=== PATIENT | female | born 1945 | race Caucasian/White ===

== ENCOUNTER → 2018-11-29 15:38 | Outpatient (CLI) | payer OTHER, SELFPAY ==
--- NOTE | 2018-11-29 | DI.ECHO.S_ITS ---
[facility] +---------+ : : [address] : : : : [id number] : : : : Phone: [phone]+ Echocardiogram Report + + :Name: JUANA KHAN Study Date: 11/29/2018 Height: 62 in : :[facility] Exam Location: [facility] Weight: 174 lb : : Gender: Female BSA: 1.8 m2 : :: 1945 Age: 73 yrs BP: 134/70 mmHg: :Reason For Study: PALPITATIONS : : Performed By: Bryan Shelton : :Referring: COSTA ESCOBEDO : + + Interpretation Summary 1) Normal left ventricular thickness, size, wall motion, and systolic function (EF 65-70%). 2) Normal right ventricular size and function. 3) No significant valvular abnormalities. 4) No prior Echo available for comparison. Procedure: A two-dimensional transthoracic echocardiogram with color flow and Doppler was performed. The study quality was technically good. There is no prior echocardiogram noted for this patient. The suprasternal notch views were difficult to obtain and are suboptimal in quality. The patient was in normal sinus rhythm during the exam. Left Ventricle: The left ventricle is normal in size. There is normal left ventricular wall thickness. The ejection fraction is estimated to be 65-70%. There are no focal wall motion abnormalities. Right Ventricle: The right ventricle is normal in size and function. Atria: Both atria are normal in size. The interatrial septum is intact with no evidence for an atrial septal defect. Mitral Valve: The mitral valve is normal in structure and function. There is trace mitral regurgitation. Aortic Valve: The aortic valve is trileaflet. The aortic valve opens well. No aortic regurgitation is present. Tricuspid Valve: The tricuspid valve is normal in structure and function. There is trace tricuspid regurgitation. The right ventricular systolic pressure is estimated to be at least 25 mmHg based on an estimated right atrial pressure of 3 mm Hg. Pulmonic Valve: The pulmonic valve is normal in structure and function. There is trace pulmonic regurgitation. Great Vessels: The aortic root is normal size. The dimensions of the ascending aorta are normal. The pulmonary artery is normal size. The IVC is of normal diameter and collapses greater than 50% with a sniff. This suggests a low right atrial pressure of 3 mm Hg. Pericardium/ Pleura There is no pericardial effusion. There is no pleural effusion. MMode/2D Measurements & Calculations LVIDd: 4.1 cm LVOT diam: 2.2 cm LVIDs: 2.3 cm Ao root diam: 2.8 cm FS: 43.6 % asc Aorta Diam: 2.8 cm EPSS: 0.25 cm IVSd: 1.0 cm LVPWd: 0.82 cm LV jacob. diameter/BSA (cm/m^2): 2.3 LV sys. diameter/BSA (cm/m^2): 1.3 LA dimension: 3.5 cm RA long axis: 5.0 cm LA A2 area: 18.9 cm2 RA area: 14.4 cm2 LA A4 area: 16.1 cm2 RA vol: 35.8 ml LA length (vol): 5.1 cm RA : 19.9 ml/m2 LA vol: 50.2 ml IVC diam: 1.2 cm LA vol index: 27.9 ml/m2 Doppler Measurements & Calculations Ao V2 max: 147.0 cm/sec LVOT Max Alex: 127.8 cm/sec Ao V2 mean: 99.3 cm/sec LV V1 max P.5 mmHg Ao max P.6 mmHg LV V1 VTI: 27.7 cm Ao mean P.4 mmHg HIREN(I,D): 3.6 cm2 Ao V2 VTI: 28.6 cm HIREN(V,D): 3.2 cm2 sev ratio: 0.97 HIREN indexed to BSA (cm^2/m^2): 2.0 MV E max alex: 78.4 cm/sec TR max alex: 233.0 cm/sec MV A max alex: 90.8 cm/sec TR max P.7 mmHg MV E/A: 0.86 PA V2 max: 112.1 cm/sec Med Peak E' Alex: 6.0 cm/sec PA V2 mean: 81.3 cm/sec E/E' med: 13.1 PA mean P.9 mmHg Lat Peak E' Alex: 7.8 cm/sec PA pr(Accel): 24.1 mmHg E/E' lat: 10.0 E/e' average: 11.6 MV dec time: 0.20 sec SV(LVOT): 103.3 ml Reading Physician:05:00 PM
== END ==
PROVIDERS: Visit Provider Internal Medicine Cardiovascular Disease
DX: R00.2 Palpitations (principal); R42 Dizziness and giddiness; I44.4 Left anterior fascicular block
CPT/HCPCS: 93306

== ENCOUNTER 2023-03-22 08:45 | Outpatient (RCR) | payer MEDICARE, SELFPAY ==
--- NOTE | 2022-12-02 11:22 | PT.OIE ---
Current Diagnoses Mixed incontinence (12/02/22) Past Medical History (Last Updated 09/02/22 @ 20:25 by Patricia Williamson) Abnormal Pap smear of cervix Anemia (~1961) Cataracts, bilateral (~2009) Cervical polyp Chicken pox Encephalitis Hearing loss (~09/2020) Mumps Ocular migraine (~1991) Osteoarthritis Osteopenia (~2013) Vertigo Wears glasses Past Surgical History (Last Updated 09/02/22 @ 20:25 by Patricia Williamson) Anesthesia History of dilatation and curettage (~08/2019) Visit Care Team Role Provider Type ANGEL Mazariegos Attending Provider Non-Staff Family Provider Primary Care Provider Referring Provider Specialty: Nursing Address: [facility] [address], [address], [place], [address] Email: Physical Therapy Initial Evaluation PT-OP-A Visit Information Start: 12/01/22 11:38 Freq: Status: Active Protocol: Document 12/02/22 09:05 AMB (Rec: 12/02/22 10:06 AMB [id number]) Out-Patient Physical Therapy Visit Information Visit Information Visit Type Initial Evaluation Visit Start Time 09:00 Visit Stop Time 09:45 Total Visit Minutes 45 Visit Number 1 PT-OP-B Current Condition Start: 12/01/22 11:38 Freq: Status: Active Protocol: Document 12/02/22 09:05 AMB (Rec: 12/02/22 10:06 AMB [id number]) Current Condition History of Current Condition Onset Date 3-4 weeks ago Current Complaints Urge incontinence History of Current Condition 3-4 weeks ago starting having larger leaks. Has been leaking on and off for years. Walking from bed to toilet in the morning causes a large leak. Can also happen during the day now, walking to the bathroom. Going to the bathroom every half hour in the morning but then in the afternoon could be every 2 hours. 2 vaginal deliveries no leaking until about age 61. Personal Factors Other Personal Factors That May Effect osteopenia, hypertension Therapy/Recovery PT-OP-C Subjective Start: 12/01/22 11:38 Freq: Status: Active Protocol: Document 12/02/22 15:56 AMB (Rec: 12/02/22 15:56 AMB [id number]) Patient Questionnaires Pelvic Pain and Urgency/Frequency Patient Symptom Scale Pelvic Pain Score 11 PT-OP-I Pelvic Floor Start: 12/01/22 11:38 Freq: Status: Active Protocol: Document 12/02/22 10:49 AMB (Rec: 12/08/22 10:55 AMB [id number]) Pelvic Floor Assessment Urine Pelvic Floor Surgery No Leakage Size Large Leakage Cause Urge Nocturia 2 Contraction Ability Voluntary Contraction Weak Manual Muscle Testing Left 1 Manual Muscle Testing Right 1 Manual Muscle Testing Anterior 1 Manual Muscle Testing Posterior 1 Muscle Endurance (Seconds) 1 Comments Pelvic Floor Comments flicker of a pelvic floor contraction, very hard to palpate with verbal and physical cues PT-OP-T Assessment and Plan Start: 12/01/22 11:38 Freq: Status: Active Protocol: Document 12/02/22 16:01 AMB (Rec: 12/07/22 16:02 AMB [id number]) Physical Therapy Assessment Rehab Potential Rehabilitation Potential Good Evaluation Complexity Number of Personal Factors/Comorbidities 1-2 Number of Body Systems Impaired 1-2 Clinical Presentation at Evaluation Stable Impairments Impairments Functional Activities,Strength Goals Two Impairment Incontinence Short Term Goal (STG) Marti will calmly walk to the bathroom without leaking. STG Duration 4 weeks One Impairment Pelvic floor strength Short Term Goal (STG) Marti will be independent with and pelvic floor strengthening HEP. STG Duration 4 weeks Senior Living Goal (LTG) Marti will be able to contract her pelvic floor while moving from sit to stand . LTG Duration 8 weeks Assessment Summary Assessment Marti attends physical therapy with new onset urge incontinence. It sounds that she has had some level of incontinence for the past 16 or so years, but has progressively worsened. Did improve about a decade ago with pelvic floor physical therapy. She has urgency when getting up to use the bathroom. She has urinary frequency. Her pelvic floor strength was very poor, with difficulty palpating even a flicker of strength. Marti will benefit from physical therapy for both instruction in urgency reduction and for strengthening her pelvic floor . Physical Therapy Plan Frequency and Duration Frequency of Treatment 1x/Week Duration of treatment (weeks) 10 Plan of Care Start Date 12/02/22 Plan of Care End Date 02/10/23 Therapeutic Interventions Therapeutic Interventions Home Exercise Program,Manual Therapy,Neuromuscular Re- education,Self-Care/Home Management,Therapeutic Activities,Therapeutic Exercises Modalities Biofeedback,Electric Stimulation Next Visit Focus/Plan Next Note Type Treatment Note
--- NOTE | 2022-12-02 11:24 | PT.OPPOC ---
Physical, Occupational & Speech Therapy At [facility] Current Diagnoses Mixed incontinence (12/02/22) Visit Care Team Role Provider Type ANGEL Mazariegos Attending Provider Non-Staff Family Provider Primary Care Provider Referring Provider Specialty: Nursing Address: [facility] [address], [address], [place], [address] Email: Plan Of Care PT-OP-T Assessment and Plan Start: 12/01/22 11:38 Freq: Status: Active Protocol: Document 12/02/22 16:01 AMB (Rec: 12/07/22 16:02 AMB [id number]) Physical Therapy Assessment Rehab Potential Rehabilitation Potential Good Evaluation Complexity Number of Personal Factors/Comorbidities 1-2 Number of Body Systems Impaired 1-2 Clinical Presentation at Evaluation Stable Impairments Impairments Functional Activities,Strength Goals Two Impairment Incontinence Short Term Goal (STG) Marti will calmly walk to the bathroom without leaking. STG Duration 4 weeks One Impairment Pelvic floor strength Short Term Goal (STG) Marti will be independent with and pelvic floor strengthening HEP. STG Duration 4 weeks Mcfp Goal (LTG) Marti will be able to contract her pelvic floor while moving from sit to stand . LTG Duration 8 weeks Assessment Summary Assessment Marti attends physical therapy with new onset urge incontinence. It sounds that she has had some level of incontinence for the past 16 or so years, but has progressively worsened. Did improve about a decade ago with pelvic floor physical therapy. She has urgency when getting up to use the bathroom. She has urinary frequency. Her pelvic floor strength was very poor, with difficulty palpating even a flicker of strength. Marti will benefit from physical therapy for both instruction in urgency reduction and for strengthening her pelvic floor . Physical Therapy Plan Frequency and Duration Frequency of Treatment 1x/Week Duration of treatment (weeks) 10 Plan of Care Start Date 12/02/22 Plan of Care End Date 02/10/23 Therapeutic Interventions Therapeutic Interventions Home Exercise Program,Manual Therapy,Neuromuscular Re- education,Self-Care/Home Management,Therapeutic Activities,Therapeutic Exercises Modalities Biofeedback,Electric Stimulation Next Visit Focus/Plan Next Note Type Treatment Note Plan of Care Dates Plan of Care Start Date 12/02/22 Plan of Care End Date 02/10/23 Electronically Signed by: Alka Piedra, PT 12/08/22 1124 If you are in agreement with this Plan of Care, please return a signed and dated copy. I have reviewed this Plan of Care and certify that the skilled therapy services above are required to meet the patient?s needs. Physician Signature Date Printed Name and Credentials Clinical Instructor Signature Printed Name and Credentials
--- NOTE | 2022-12-08 14:50 | PT.OTN ---
Current Diagnoses Mixed incontinence (12/08/22) Physical Therapy Treatment Note PT-OP-A Visit Information Start: 12/01/22 11:38 Freq: Status: Active Protocol: Document 12/08/22 12:47 AMB (Rec: 12/08/22 13:33 AMB [id number]) Out-Patient Physical Therapy Visit Information Visit Information Visit Type Treatment Note Visit Start Time 12:45 Visit Stop Time 13:30 Total Visit Minutes 45 Visit Number 2 PT-OP-B Current Condition Start: 12/01/22 11:38 Freq: Status: Active Protocol: Document 12/02/22 09:05 AMB (Rec: 12/02/22 10:06 AMB [id number]) Current Condition History of Current Condition Onset Date 3-4 weeks ago Current Complaints Urge incontinence History of Current Condition 3-4 weeks ago starting having larger leaks. Has been leaking on and off for years. Walking from bed to toilet in the morning causes a large leak. Can also happen during the day now, walking to the bathroom. Going to the bathroom every half hour in the morning but then in the afternoon could be every 2 hours. 2 vaginal deliveries no leaking until about age 61. Personal Factors Other Personal Factors That May Effect osteopenia, hypertension Therapy/Recovery PT-OP-C Subjective Start: 12/01/22 11:38 Freq: Status: Active Protocol: Document 12/08/22 12:47 AMB (Rec: 12/08/22 13:33 AMB [id number]) OP-PT Subjective Patient Comments Patient Comments Marti had one leak in the last weak. PT-OP-I Pelvic Floor Start: 12/01/22 11:38 Freq: Status: Active Protocol: Document 12/02/22 10:49 AMB (Rec: 12/08/22 10:55 AMB [id number]) Pelvic Floor Assessment Urine Pelvic Floor Surgery No Leakage Size Large Leakage Cause Urge Nocturia 2 Contraction Ability Voluntary Contraction Weak Manual Muscle Testing Left 1 Manual Muscle Testing Right 1 Manual Muscle Testing Anterior 1 Manual Muscle Testing Posterior 1 Muscle Endurance (Seconds) 1 Comments Pelvic Floor Comments flicker of a pelvic floor contraction, very hard to palpate with verbal and physical cues PT-OP-Q Treatments Start: 12/01/22 11:38 Freq: Status: Active Protocol: Document 12/08/22 12:47 AMB (Rec: 12/08/22 13:33 AMB [id number]) Neuro Re-Education Treatment Other Activities sEMG Reps/Duration 38. Comments Cued to breathe. Discussed what muscles to use, ok urethral and vaginal and rectal muscles, avoiding glutes. Dont' let pelvic floor drop, control the descent. Got up to 3uv with cues ok to use rectal muscles too PT-OP-T Assessment and Plan Start: 12/01/22 11:38 Freq: Status: Active Protocol: Document 12/08/22 12:47 AMB (Rec: 12/08/22 13:33 AMB [id number]) Physical Therapy Assessment Goals Two Impairment Incontinence Short Term Goal (STG) Marti will calmly walk to the bathroom without leaking. STG Duration 4 weeks One Impairment Pelvic floor strength Short Term Goal (STG) Marti will be independent with and pelvic floor strengthening HEP. STG Duration 4 weeks [employer] Goal (LTG) Marti will be able to contract her pelvic floor while moving from sit to stand . LTG Duration 8 weeks Assessment Summary Assessment Baseline .1 and Max 3.8 for quick flicks. For long holds able to maintain contraction average was 1.5 with maximum of 2.8 uV. Fatigued very quickly, so that by the end pt was averaging 1uv for long holds. Physical Therapy Plan Frequency and Duration Frequency of Treatment 1x/Week Duration of treatment (weeks) 10 Plan of Care Start Date 12/02/22 Plan of Care End Date 02/10/23 Therapeutic Interventions Therapeutic Interventions Home Exercise Program,Manual Therapy,Neuromuscular Re- education,Self-Care/Home Management,Therapeutic Activities,Therapeutic Exercises Modalities Biofeedback,Electric Stimulation Next Visit Focus/Plan Next Note Type Treatment Note Next Visit Plan sEMG, supine progression of exercises.
--- NOTE | 2022-12-14 22:30 | PT.OTN ---
Current Diagnoses Mixed incontinence (12/14/22) Physical Therapy Treatment Note PT-OP-A Visit Information Start: 12/01/22 11:38 Freq: Status: Active Protocol: Document 12/14/22 10:59 AMB (Rec: 12/14/22 11:23 AMB [id number]) Out-Patient Physical Therapy Visit Information Visit Information Visit Type Treatment Note Visit Note Pt prefers therapist to mask, prefers to visual therapist washing hands Visit Start Time 10:45 Visit Stop Time 11:30 Total Visit Minutes 45 Visit Number 3 PT-OP-B Current Condition Start: 12/01/22 11:38 Freq: Status: Active Protocol: Document 12/02/22 09:05 AMB (Rec: 12/02/22 10:06 AMB [id number]) Current Condition History of Current Condition Onset Date 3-4 weeks ago Current Complaints Urge incontinence History of Current Condition 3-4 weeks ago starting having larger leaks. Has been leaking on and off for years. Walking from bed to toilet in the morning causes a large leak. Can also happen during the day now, walking to the bathroom. Going to the bathroom every half hour in the morning but then in the afternoon could be every 2 hours. 2 vaginal deliveries no leaking until about age 61. Personal Factors Other Personal Factors That May Effect osteopenia, hypertension Therapy/Recovery PT-OP-C Subjective Start: 12/01/22 11:38 Freq: Status: Active Protocol: Document 12/14/22 10:59 AMB (Rec: 12/14/22 11:23 AMB [id number]) OP-PT Subjective Patient Comments Patient Comments Marti had two leaks in the last week. PT-OP-I Pelvic Floor Start: 12/01/22 11:38 Freq: Status: Active Protocol: Document 12/02/22 10:49 AMB (Rec: 12/08/22 10:55 AMB [id number]) Pelvic Floor Assessment Urine Pelvic Floor Surgery No Leakage Size Large Leakage Cause Urge Nocturia 2 Contraction Ability Voluntary Contraction Weak Manual Muscle Testing Left 1 Manual Muscle Testing Right 1 Manual Muscle Testing Anterior 1 Manual Muscle Testing Posterior 1 Muscle Endurance (Seconds) 1 Comments Pelvic Floor Comments flicker of a pelvic floor contraction, very hard to palpate with verbal and physical cues PT-OP-Q Treatments Start: 12/01/22 11:38 Freq: Status: Active Protocol: Document 12/14/22 22:18 AMB (Rec: 12/16/22 22:21 AMB [id number]) Therapeutic Exercises Supine Exercises pelvic floor contract Supine Exercise Name 3 second on 10 second relax Reps/Minutes 5 min Comments heavy cues for breath hamstring stretch Side bilateral Reps/Minutes 30x2 hip flexor stretch Side bilateral Reps/Minutes 30x2 Comments leg off table adductor stretch Side bilateral Reps/Minutes 30x2 Comments butterfly piriformis stretch Side bilateral Reps/Minutes 30x2 PT-OP-T Assessment and Plan Start: 12/01/22 11:38 Freq: Status: Active Protocol: Document 12/14/22 10:59 AMB (Rec: 12/14/22 11:23 AMB [id number]) Physical Therapy Assessment Goals Two Impairment Incontinence Short Term Goal (STG) Marti will calmly walk to the bathroom without leaking. STG Duration 4 weeks One Impairment Pelvic floor strength Short Term Goal (STG) Marti will be independent with and pelvic floor strengthening HEP. STG Duration 4 weeks Jail Goal (LTG) Marti will be able to contract her pelvic floor while moving from sit to stand . LTG Duration 8 weeks Assessment Summary Assessment Pt quite tight throughout hip and back and this limits her ability to tolerate pelvic floor exercises. She is getting fatigue and soreness with her exercises, so worked on stretches today and encouraged longer rest breaks between strengthening exercises. Physical Therapy Plan Frequency and Duration Frequency of Treatment 1x/Week Duration of treatment (weeks) 10 Plan of Care Start Date 12/02/22 Plan of Care End Date 02/10/23 Therapeutic Interventions Therapeutic Interventions Home Exercise Program,Manual Therapy,Neuromuscular Re- education,Self-Care/Home Management,Therapeutic Activities,Therapeutic Exercises Modalities Biofeedback,Electric Stimulation Next Visit Focus/Plan Next Note Type Treatment Note Next Visit Plan sEMG, supine progression of exercises.
--- NOTE | 2022-12-22 10:06 | PT.OTN ---
Current Diagnoses Mixed incontinence (12/22/22) Physical Therapy Treatment Note PT-OP-A Visit Information Start: 12/01/22 11:38 Freq: Status: Active Protocol: Document 12/22/22 08:53 AMB (Rec: 12/22/22 09:55 AMB [id number]) Out-Patient Physical Therapy Visit Information Visit Information Visit Type Treatment Note Visit Note Pt prefers therapist to mask, prefers to visual therapist washing hands Visit Start Time 09:00 Visit Stop Time 09:45 Total Visit Minutes 45 Visit Number 4 PT-OP-B Current Condition Start: 12/01/22 11:38 Freq: Status: Active Protocol: Document 12/02/22 09:05 AMB (Rec: 12/02/22 10:06 AMB [id number]) Current Condition History of Current Condition Onset Date 3-4 weeks ago Current Complaints Urge incontinence History of Current Condition 3-4 weeks ago starting having larger leaks. Has been leaking on and off for years. Walking from bed to toilet in the morning causes a large leak. Can also happen during the day now, walking to the bathroom. Going to the bathroom every half hour in the morning but then in the afternoon could be every 2 hours. 2 vaginal deliveries no leaking until about age 61. Personal Factors Other Personal Factors That May Effect osteopenia, hypertension Therapy/Recovery PT-OP-C Subjective Start: 12/01/22 11:38 Freq: Status: Active Protocol: Document 12/22/22 08:53 AMB (Rec: 12/22/22 09:55 AMB [id number]) OP-PT Subjective Patient Comments Patient Comments Marti had a lot of leaks (7) this week. Was sore. Urgency continues. PT-OP-I Pelvic Floor Start: 12/01/22 11:38 Freq: Status: Active Protocol: Document 12/02/22 10:49 AMB (Rec: 12/08/22 10:55 AMB [id number]) Pelvic Floor Assessment Urine Pelvic Floor Surgery No Leakage Size Large Leakage Cause Urge Nocturia 2 Contraction Ability Voluntary Contraction Weak Manual Muscle Testing Left 1 Manual Muscle Testing Right 1 Manual Muscle Testing Anterior 1 Manual Muscle Testing Posterior 1 Muscle Endurance (Seconds) 1 Comments Pelvic Floor Comments flicker of a pelvic floor contraction, very hard to palpate with verbal and physical cues PT-OP-Q Treatments Start: 12/01/22 11:38 Freq: Status: Active Protocol: Document 12/22/22 08:53 AMB (Rec: 12/22/22 09:55 AMB [id number]) Therapeutic Exercises Supine Exercises pelvic floor contract Supine Exercise Name 3 second on 10 second relax Reps/Minutes 5 min Comments heavy cues for breath hamstring stretch Side bilateral Reps/Minutes 30x2 Neuro Re-Education Treatment Other Activities sEMG Details 20min Comments Max 8.6 with quick flicks today. Continues to need extra rest time between sets due to fatigue and soreness. Avg 2.5. PT-OP-T Assessment and Plan Start: 12/01/22 11:38 Freq: Status: Active Protocol: Document 12/22/22 08:53 AMB (Rec: 12/22/22 09:55 AMB [id number]) Physical Therapy Assessment Goals Two Impairment Incontinence Short Term Goal (STG) Marti will calmly walk to the bathroom without leaking. STG Duration 4 weeks One Impairment Pelvic floor strength Short Term Goal (STG) Mrati will be independent with and pelvic floor strengthening HEP. STG Duration 4 weeks [facility]dc Goal (LTG) Marti will be able to contract her pelvic floor while moving from sit to stand . LTG Duration 8 weeks Assessment Summary Assessment Pt does drink a lot of coffee in the AM. Encouraged ok to go frequently in the morning if that helps her avoid leaks for now (pt had been experiencing more leaks when trying to stretch time between voids to closer to 2 hrs.). Encouraged pt to continue with strengthening and reviewed urge reduction techniques. Needs increased rest time between exercises. Pt finds biofeedback helpful, did show improvment with biofeedback today. Physical Therapy Plan Frequency and Duration Frequency of Treatment 1x/Week Duration of treatment (weeks) 10 Plan of Care Start Date 12/02/22 Plan of Care End Date 02/10/23 Therapeutic Interventions Therapeutic Interventions Home Exercise Program,Manual Therapy,Neuromuscular Re- education,Self-Care/Home Management,Therapeutic Activities,Therapeutic Exercises Modalities Biofeedback,Electric Stimulation Next Visit Focus/Plan Next Note Type Treatment Note Next Visit Plan sEMG, supine progression of exercises.
--- NOTE | 2023-01-11 17:00 | PT.OTN ---
Current Diagnoses Mixed incontinence (01/11/23) Physical Therapy Treatment Note PT-OP-A Visit Information Start: 12/01/22 11:38 Freq: Status: Active Protocol: Document 01/11/23 14:19 LRN (Rec: 01/11/23 15:07 LRN [id number]) Out-Patient Physical Therapy Visit Information Visit Information Visit Type Treatment Note Visit Note Pt prefers to visual therapist washing hands. Visit Start Time 14:19 Visit Stop Time 14:52 Total Visit Minutes 33 Visit Number 5 Evaluation Information Evaluation Date 12/02/21 Precautions Precautions Hx of LBP PT-OP-B Current Condition Start: 12/01/22 11:38 Freq: Status: Active Protocol: Document 12/02/22 09:05 AMB (Rec: 12/02/22 10:06 AMB [id number]) Current Condition History of Current Condition Onset Date 3-4 weeks ago Current Complaints Urge incontinence History of Current Condition 3-4 weeks ago starting having larger leaks. Has been leaking on and off for years. Walking from bed to toilet in the morning causes a large leak. Can also happen during the day now, walking to the bathroom. Going to the bathroom every half hour in the morning but then in the afternoon could be every 2 hours. 2 vaginal deliveries no leaking until about age 61. Personal Factors Other Personal Factors That May Effect osteopenia, hypertension Therapy/Recovery PT-OP-C Subjective Start: 12/01/22 11:38 Freq: Status: Active Protocol: Document 01/11/23 14:19 LRN (Rec: 01/11/23 15:07 LRN [id number]) OP-PT Subjective Patient Comments Patient Comments Pt reports worsening urinary leakage from 2x/week to 5x/ week and unpredictable leakage . States she has had therapy 7 yrs ago and did more ex's on machine (EMG biofeedback). Today she states she is feeling discomfort in groin with PF strengthening and almost feels it is her unused stomach ms and bowels that is painful. Uses a stool softner herblaxitive nightly and BM in mornings. Bowels type 2 mostly and type 6,7. PT-OP-I Pelvic Floor Start: 12/01/22 11:38 Freq: Status: Active Protocol: Document 01/11/23 14:19 LRN (Rec: 01/11/23 15:07 LRN [id number]) Pelvic Floor Assessment Urine Other Urinary Symptoms 2x/week really bad, but now 5x /week. Unpredictable leakage. Used to leak going to bathroom on a urge. Leakage Size Large Leaks Per Day 5x/week. Nocturia Sometimes. Up 1x/night. Pads Used In 24 Hours 1 Urine Pad Type Maxi Pad Bowel Bowel Movement Frequency 1-3 [place] Stool Chart Comments Type 2 mostly, and type 6.7 Pelvic Clock Pelvic Clock 6-9 Tenderness Pelvic Clock 9-12 Tenderness Pelvic Clock Other Small vaginal opening. Redness at vaginal opening and external tissues of perineum. Prolapse Cystocele Grade 3 Rectocele Grade 1 Perineal Descent Resting Absent Bearing Absent Contraction Ability Voluntary Contraction Absent Manual Muscle Testing Left 0 Manual Muscle Testing Right 0 Manual Muscle Testing Anterior 0 Manual Muscle Testing Posterior 0 Muscle Endurance (Seconds) 0 Number of Quick Contractions In 10 0 Seconds Comments Pelvic Floor Comments External perineum tissues - redness present. PT-OP-Q Treatments Start: 12/01/22 11:38 Freq: Status: Active Protocol: Document 01/11/23 14:19 LRN (Rec: 01/11/23 15:07 LRN [id number]) Therapeutic Exercises Supine Exercises pelvic floor contract Supine Exercise Name PF contractions-quick & long holds, w/bearing down Reps/Minutes 10' Manual Therapy Treatment Soft Tissue Mobilization Lower abdomen Body Location Region of bladder and uterus Mobilization Type Sustained Pressure Intensity/Depth Superficial Body Position Hooklying Comments Bolster under knees. Superficial to partly moderate . Pain with STM. Self-Care/Home Management Treatment Education Patient Education Home Exercise Program,Pain Management Other Education Pt education and discussion, at length, in PF perineal care and genital hygiene care. Activities Self-Care/Home Management Activities I/S pt to practice PF contractions in isolation of Abdominal ms, gluteal ms, and hip AD. Recommended 3x/day ex. PT-OP-T Assessment and Plan Start: 12/01/22 11:38 Freq: Status: Active Protocol: Document 01/11/23 14:19 LRN (Rec: 01/11/23 15:07 LRN [id number]) Physical Therapy Assessment Goals Two Impairment Incontinence Short Term Goal (STG) Marti will calmly walk to the bathroom without leaking. STG Duration 4 weeks One Impairment Pelvic floor strength Short Term Goal (STG) Marti will be independent with and pelvic floor strengthening HEP. STG Duration 4 weeks Processor Inspector Goal (LTG) Marti will be able to contract her pelvic floor while moving from sit to stand . LTG Duration 8 weeks Assessment Summary Assessment Pt with urgency when getting up to use the bathroom, urinary frequency that is worsening and uncontrolled loss of bladder control sometimes. Her pelvic floor strength was very poor, with no PF contraction noted. Low tolerance to manual mobilization of the lower abdomen with pt guarded for fear of bowel dysfunction due to flying on trip today. Physical Therapy Plan Frequency and Duration Frequency of Treatment 1x/Week Duration of treatment (weeks) 10 Plan of Care Start Date 12/02/22 Plan of Care End Date 02/10/23 Next Visit Focus/Plan Next Note Type Treatment Note Next Visit Plan Assess for LB involvement, and abdominal/GI dysfunction. Issue & if needed review general vulvar and genital hygiene care and urge deference techniqu, Education in bladder irritantse, & BM care Transfer training to coordinate breathwork and PF contractions, Try sEMG for PF contraction awareness, Ex: LE roll in/outs and supine progression of exercises. PF strengthening quick and long holds.
--- NOTE | 2023-01-22 16:19 | PT.OTN ---
Current Diagnoses Mixed incontinence (01/22/23) Physical Therapy Treatment Note PT-OP-A Visit Information Start: 12/01/22 11:38 Freq: Status: Active Protocol: Document 01/22/23 12:35 LRN (Rec: 01/22/23 13:19 LRN [id number]) Out-Patient Physical Therapy Visit Information Visit Information Visit Type Treatment Note Visit Note Pt prefers masking and to visualize therapist washing hands. Visit Start Time 12:35 Visit Stop Time 13:17 Total Visit Minutes 44 Visit Number 6 Evaluation Information Evaluation Date 12/02/21 Precautions Precautions Hx of LBP, mild allergies (? latex), osteopenia, arthritis. PT-OP-B Current Condition Start: 12/01/22 11:38 Freq: Status: Active Protocol: Document 12/02/22 09:05 AMB (Rec: 12/02/22 10:06 AMB [id number]) Current Condition History of Current Condition Onset Date 3-4 weeks ago Current Complaints Urge incontinence History of Current Condition 3-4 weeks ago starting having larger leaks. Has been leaking on and off for years. Walking from bed to toilet in the morning causes a large leak. Can also happen during the day now, walking to the bathroom. Going to the bathroom every half hour in the morning but then in the afternoon could be every 2 hours. 2 vaginal deliveries no leaking until about age 61. Personal Factors Other Personal Factors That May Effect osteopenia, hypertension Therapy/Recovery PT-OP-C Subjective Start: 12/01/22 11:38 Freq: Status: Active Protocol: Document 01/22/23 12:35 LRN (Rec: 01/22/23 13:19 LRN [id number]) OP-PT Subjective Patient Comments Patient Comments Hasn't been doing ex's as much . Having more uncontrolled urinary leakage. No bowel dysfunction. Last session had more achiness and activity of bowels for 3 days. States a long time ago she had a chiropractor adjust her Iliocecal valve and the pressure pain was reduced some . Pt very leary of having STM on abdomen due to fear of lasting pain, like last time . PT-OP-I Pelvic Floor Start: 12/01/22 11:38 Freq: Status: Active Protocol: Document 01/11/23 14:19 LRN (Rec: 01/11/23 15:07 LRN [id number]) Pelvic Floor Assessment Urine Other Urinary Symptoms 2x/week really bad, but now 5x /week. Unpredictable leakage. Used to leak going to bathroom on a urge. Leakage Size Large Leaks Per Day 5x/week. Nocturia Sometimes. Up 1x/night. Pads Used In 24 Hours 1 Urine Pad Type Maxi Pad Bowel Bowel Movement Frequency 1-3 [place] Stool Chart Comments Type 2 mostly, and type 6.7 Pelvic Clock Pelvic Clock 6-9 Tenderness Pelvic Clock 9-12 Tenderness Pelvic Clock Other Small vaginal opening. Redness at vaginal opening and external tissues of perineum. Prolapse Cystocele Grade 3 Rectocele Grade 1 Perineal Descent Resting Absent Bearing Absent Contraction Ability Voluntary Contraction Absent Manual Muscle Testing Left 0 Manual Muscle Testing Right 0 Manual Muscle Testing Anterior 0 Manual Muscle Testing Posterior 0 Muscle Endurance (Seconds) 0 Number of Quick Contractions In 10 0 Seconds Comments Pelvic Floor Comments External perineum tissues - redness present. PT-OP-Q Treatments Start: 12/01/22 11:38 Freq: Status: Active Protocol: Document 01/22/23 12:35 LRN (Rec: 01/22/23 13:19 [facility] [id number]) Therapeutic Exercises Supine Exercises pelvic floor contract Supine Exercise Name PF contraction training in isolation of substitute muscles Reps/Minutes 10' Comments Much v cues, phys cues with hand on perineum, pt hand on belly & gluts Other Exercises Coord of PF></Breath/transfers Other Exercise Name Transfer training for coordination of PF></Breath. Reps/Minutes 25' Comments Transfer training 21' and then throughout therapy session Self-Care/Home Management Treatment Education Other Education 7' Discussed with pt her L abdominal pain and bowel system. Recommended she try determining her digestive transit time with beets or corn. Pt eats beats; therefore will try with beats. PT-OP-T Assessment and Plan Start: 12/01/22 11:38 Freq: Status: Active Protocol: Document 01/22/23 12:35 LRN (Rec: 01/22/23 13:19 N [id number]) Physical Therapy Assessment Goals Two Impairment Incontinence Short Term Goal (STG) Marti will calmly walk to the bathroom without leaking. STG Duration 4 weeks One Impairment Pelvic floor strength Short Term Goal (STG) Marti will be independent with and pelvic floor strengthening HEP. STG Duration 4 weeks Grooving Machine Operator Goal (LTG) Marti will be able to contract her pelvic floor while moving from sit to stand . LTG Duration 8 weeks Assessment Summary Assessment Pt with urgency and worsening urinary leakage/frequency. Extra time needed for transfer training w/coordinated PF/ breathing due to pt needing many cues and repetition for pt to remember to coordinate properly. Initially pt had very poor PF strength, with no PF contraction noted; therefore she substitutes greatly with gluteals > abdominal muscles. Physical Therapy Plan Frequency and Duration Frequency of Treatment 1x/Week Duration of treatment (weeks) 10 Plan of Care Start Date 12/02/22 Plan of Care End Date 02/10/23 Next Visit Focus/Plan Next Note Type Treatment Note Next Visit Plan Review coordination breathwork /PF contractions with transfers. Assess for latex allergy, Assess LB involvement, and abdominal/GI dysfunction. Try sEMG for PF contraction awareness, Issue & if needed review general vulvar and genital hygiene care and urge deference technique, Education in bladder irritants , & BM care, Ex: LE roll in/outs and supine progression of exercises. PF strengthening quick and long holds.
--- NOTE | 2023-02-12 17:09 | PT.OTN ---
Current Diagnoses Mixed incontinence (02/12/23) Physical Therapy Treatment Note PT-OP-A Visit Information Start: 12/01/22 11:38 Freq: Status: Active Protocol: Document 02/12/23 08:01 LRN (Rec: 02/12/23 08:48 LRN [id number]) Out-Patient Physical Therapy Visit Information Visit Information Visit Type Progress Note Visit Note Pt prefers masking and to visualize therapist washing Visit Start Time 08:01 Visit Stop Time 08:46 Total Visit Minutes 45 Visit Number 7 Evaluation Information Evaluation Date 12/02/21 Precautions Precautions Hx of LBP, mild allergies (? latex), osteopenia, arthritis. PT-OP-B Current Condition Start: 12/01/22 11:38 Freq: Status: Active Protocol: Document 12/02/22 09:05 AMB (Rec: 12/02/22 10:06 AMB [id number]) Current Condition History of Current Condition Onset Date 3-4 weeks ago Current Complaints Urge incontinence History of Current Condition 3-4 weeks ago starting having larger leaks. Has been leaking on and off for years. Walking from bed to toilet in the morning causes a large leak. Can also happen during the day now, walking to the bathroom. Going to the bathroom every half hour in the morning but then in the afternoon could be every 2 hours. 2 vaginal deliveries no leaking until about age 61. Personal Factors Other Personal Factors That May Effect osteopenia, hypertension Therapy/Recovery PT-OP-C Subjective Start: 12/01/22 11:38 Freq: Status: Active Protocol: Document 02/12/23 08:01 LRN (Rec: 02/12/23 08:48 LRN [id number]) OP-PT Subjective Patient Comments Patient Comments States she feels things are worsening. Having 2 leaks per day. Going less than every hour and having leakage w/o warning. PT-OP-I Pelvic Floor Start: 12/01/22 11:38 Freq: Status: Active Protocol: Document 02/12/23 08:01 LRN (Rec: 02/12/23 16:37 LRN [id number]) Pelvic Floor Assessment SEMG (uV) Baseline 0.1 10 Second Contraction 4.3 Relaxation Poor/Slow Holding Poor/Slow Stability of Hold Poor/Slow SEMG Stability of Rest Good PT-OP-K Range of Motion Start: 02/12/23 07:55 Freq: Status: Active Protocol: Document 02/12/23 08:01 LRN (Rec: 02/12/23 08:48 LRN [id number]) Hip Goniometric Range of Motion Hip Right Passive Testing Position Supine Straight Leg Raise 70 Internal Rotation 25 External Rotation 40 Left Passive Testing Position Supine Straight Leg Raise 70 Internal Rotation 25 External Rotation 35 PT-OP-M Strength Start: 02/12/23 07:55 Freq: Status: Active Protocol: Document 02/12/23 08:01 LRN (Rec: 02/12/23 08:48 LRN [id number]) Hip Strength Hip Manual Muscle Testing Right External Rotation 5 Normal Internal Rotation 5 Normal Left External Rotation 4+ Good+ Internal Rotation 5 Normal PT-OP-Q Treatments Start: 12/01/22 11:38 Freq: Status: Active Protocol: Document 02/12/23 08:01 LRN (Rec: 02/12/23 08:48 LRN [id number]) Neuro Re-Education Treatment Other Activities sEMG Details rest, 10 sec contractions Reps/Duration 20 min Comments Max 8.6 with quick flicks today. Continues to need extra rest time between sets due to fatigue and soreness. Avg 2.5. Pt fatigued and was not able to complete 20 reps. Self-Care/Home Management Treatment Education Other Education Per pt questioning of why she might be leaking more and for abdominal pain, pt educated in PF anatomy using model and description of PF contractions . Discussed pt doing bladder diary and possible increase in fluids leading to increased urination and leakage. Discussed at length possible reasons for abdominal pain and for vaginal pain, and discussed bowel types and recommended pt increase fiber in diet appropriate for her diverticulosis and requested pt see physician recommendations for appropriate greens and fruits for her diet. Discussed recommendations for today's treatment of PF manual stretching or PF assesss and PF E-stim to increase awareness of PF contractions and strength. Pt chosing for PF assessment. Activities Self-Care/Home Management Activities Issued & reviewed: Bladder diary and Bladder program PT-OP-T Assessment and Plan Start: 12/01/22 11:38 Freq: Status: Active Protocol: Document 02/12/23 08:01 LRN (Rec: 02/12/23 08:48 LRN [id number]) Physical Therapy Assessment Rehab Potential Rehabilitation Potential Good Evaluation Complexity Number of Personal Factors/Comorbidities 1-2 Number of Body Systems Impaired 4 or More Clinical Presentation at Evaluation Evolving Impairments Impairments Functional Activities,Pain, Posture,ROM,Soft Tissue Mobility,Strength,Transfers Goals Two Impairment Incontinence Short Term Goal (STG) Marti will calmly walk to the bathroom without leaking. 02/12/23: Pt leaking 2x/day. STG Duration 4 weeks One Impairment Pelvic floor strength Short Term Goal (STG) Marti will be independent with and pelvic floor strengthening HEP. 02/12/23: STG Duration 4 weeks progressed Residential Goal (LTG) Marti will be able to contract her pelvic floor while moving from sit to stand . 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 Pt has urge incontinence that progressively is worsening, with pt reporting she is urinating now <every hour and leaking 2x/day. Pt is trying to drink more fluids which may be why she is urinating more. Initially the pt didn't have a palpable PF contraction but is able to create pressure with PF contractions with long hold contraction with avg of 4.3 uV (previously was 1.5). Today she showed inability to hold her contraction and at rest, baseline is same at 0.1 uV. Pt may have tight PF muscles since she began to have discomfort after 16 reps of long holds. PF Stim may be helpful to see if the pt can gain awareness of a proper contraction if tightness is not the problem. Further physical therapy to rule out PF ms tightness or manual therapy of PF, low back, and hip muscles would be appropriate for possible Pudendal entrapment. I recommend continuation of physical therapy but I the pt may may benefit from an EMG study for pudendal nerve involvement if one can be done . Extended PT time is needed due to pt will not be able to attend for a couple of weeks due to vacation schedules. Physical Therapy Plan Frequency and Duration Frequency of Treatment 1x/Week Duration of treatment (weeks) 8 Plan of Care Start Date 02/12/23 Plan of Care End Date 04/09/23 Therapeutic Interventions Therapeutic Interventions Home Exercise Program,Joint Mobilizations,Manual Therapy, Neuromuscular Re-education, Self-Care/Home Management,Soft Tissue Mobilization, Therapeutic Activities, Therapeutic Exercises Modalities Biofeedback,Electric Stimulation Other Referrals/Consults Referrals/Consults Recommended Pudendal nerve entrapment EMG study. Next Visit Focus/Plan Next Note Type Treatment Note Next Visit Plan Discuss cont of therapy and POC. Assess LB involvement, and abdominal/GI dysfunction. Add to HEP: hip stretches for possible Piriformis tightness. Review coordination breathwork /PF contractions with transfer Assess for latex allergy, Try sEMG for PF contraction awareness, Issue & if needed review general vulvar and genital hygiene care and urge deference technique, Education in bladder irritants , & BM care, Ex: LE roll in/outs and supine progression of exercises. PF strengthening quick and long holds.
--- NOTE | 2023-02-12 17:09 | PT.OPPOC ---
Physical, Occupational & Speech Therapy At [facility] Current Diagnoses Mixed incontinence (02/12/23) Visit Care Team Role Provider Type ANGEL Mazariegos Attending Provider Non-Staff Family Provider Primary Care Provider Referring Provider Specialty: Nursing Address: [address], [address], [place], [address] Email: Plan Of Care PT-OP-T Assessment and Plan Start: 12/01/22 11:38 Freq: Status: Active Protocol: Document 02/12/23 08:01 LRN (Rec: 02/12/23 08:48 LRN [id number]) Physical Therapy Assessment Rehab Potential Rehabilitation Potential Good Evaluation Complexity Number of Personal Factors/Comorbidities 1-2 Number of Body Systems Impaired 4 or More Clinical Presentation at Evaluation Evolving Impairments Impairments Functional Activities,Pain, Posture,ROM,Soft Tissue Mobility,Strength,Transfers Goals Two Impairment Incontinence Short Term Goal (STG) Marti will calmly walk to the bathroom without leaking. 02/12/23: Pt leaking 2x/day. STG Duration 4 weeks One Impairment Pelvic floor strength Short Term Goal (STG) Marti will be independent with and pelvic floor strengthening HEP. 02/12/23: STG Duration 4 weeks progressed Triage Assistant Goal (LTG) Marti will be able to contract her pelvic floor while moving from sit to stand . 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 Pt has urge incontinence that progressively is worsening, with pt reporting she is urinating now <every hour and leaking 2x/day. Pt is trying to drink more fluids which may be why she is urinating more. Initially the pt didn't have a palpable PF contraction but is able to create pressure with PF contractions with long hold contraction with avg of 4.3 uV (previously was 1.5). Today she showed inability to hold her contraction and at rest, baseline is same at 0.1 uV. Pt may have tight PF muscles since she began to have discomfort after 16 reps of long holds. PF Stim may be helpful to see if the pt can gain awareness of a proper contraction if tightness is not the problem. Further physical therapy to rule out PF ms tightness or manual therapy of PF, low back, and hip muscles would be appropriate for possible Pudendal entrapment. I recommend continuation of physical therapy but I the pt may may benefit from an EMG study for pudendal nerve involvement if one can be done . Extended PT time is needed due to pt will not be able to attend for a couple of weeks due to vacation schedules. Physical Therapy Plan Frequency and Duration Frequency of Treatment 1x/Week Duration of treatment (weeks) 8 Plan of Care Start Date 02/12/23 Plan of Care End Date 04/09/23 Therapeutic Interventions Therapeutic Interventions Home Exercise Program,Joint Mobilizations,Manual Therapy, Neuromuscular Re-education, Self-Care/Home Management,Soft Tissue Mobilization, Therapeutic Activities, Therapeutic Exercises Modalities Biofeedback,Electric Stimulation Other Referrals/Consults Referrals/Consults Recommended Pudendal nerve entrapment EMG study. Next Visit Focus/Plan Next Note Type Treatment Note Next Visit Plan Discuss cont of therapy and POC. Assess LB involvement, and abdominal/GI dysfunction. Add to HEP: hip stretches for possible Piriformis tightness. Review coordination breathwork /PF contractions with transfer Assess for latex allergy, Try sEMG for PF contraction awareness, Issue & if needed review general vulvar and genital hygiene care and urge deference technique, Education in bladder irritants , & BM care, Ex: LE roll in/outs and supine progression of exercises. PF strengthening quick and long holds. Plan of Care Dates Plan of Care Start Date 02/12/23 Plan of Care End Date 04/09/23 Electronically Signed by: Jessie Montilla, PT 02/12/23 3114 If you are in agreement with this Plan of Care, please return a signed and dated copy. I have reviewed this Plan of Care and certify that the skilled therapy services above are required to meet the patient?s needs. Physician Signature Date Printed Name and Credentials Clinical Instructor Signature Printed Name and Credentials
--- NOTE | 2023-03-08 11:31 | PT.OTN ---
Current Diagnoses Mixed incontinence (03/08/23) Physical Therapy Treatment Note PT-OP-A Visit Information Start: 12/01/22 11:38 Freq: Status: Active Protocol: Document 03/08/23 08:52 LRN (Rec: 03/08/23 09:38 LRN [id number]) Out-Patient Physical Therapy Visit Information Visit Information Visit Type Treatment Note Visit Note Pt prefers masking and to visualize therapist washing. Visit Start Time 08:52 Visit Stop Time 09:35 Total Visit Minutes 43 Visit Number 8 Evaluation Information Evaluation Date 12/02/21 Precautions Precautions Hx of LBP, mild allergies (? latex), osteopenia, arthritis. PT-OP-B Current Condition Start: 12/01/22 11:38 Freq: Status: Active Protocol: Document 12/02/22 09:05 AMB (Rec: 12/02/22 10:06 AMB [id number]) Current Condition History of Current Condition Onset Date 3-4 weeks ago Current Complaints Urge incontinence History of Current Condition 3-4 weeks ago starting having larger leaks. Has been leaking on and off for years. Walking from bed to toilet in the morning causes a large leak. Can also happen during the day now, walking to the bathroom. Going to the bathroom every half hour in the morning but then in the afternoon could be every 2 hours. 2 vaginal deliveries no leaking until about age 61. Personal Factors Other Personal Factors That May Effect osteopenia, hypertension Therapy/Recovery PT-OP-C Subjective Start: 12/01/22 11:38 Freq: Status: Active Protocol: Document 03/08/23 08:52 LRN (Rec: 03/08/23 09:38 LRN [id number]) OP-PT Subjective Patient Comments Patient Comments Has acute UTI/cystitis. Went on vacation and was going to bathroom every 45 minutes. 6 days ago woke with blood in urine and started anti-biotic 2 days ago (sat). Has been doing ex's but not as much. PT-OP-I Pelvic Floor Start: 12/01/22 11:38 Freq: Status: Active Protocol: Document 02/12/23 08:01 LRN (Rec: 02/12/23 16:37 LRN [id number]) Pelvic Floor Assessment SEMG (uV) Baseline 0.1 10 Second Contraction 4.3 Relaxation Poor/Slow Holding Poor/Slow Stability of Hold Poor/Slow SEMG Stability of Rest Good PT-OP-K Range of Motion Start: 02/12/23 07:55 Freq: Status: Active Protocol: Document 02/12/23 08:01 LRN (Rec: 02/12/23 08:48 LRN [id number]) Hip Goniometric Range of Motion Hip Right Passive Testing Position Supine Straight Leg Raise 70 Internal Rotation 25 External Rotation 40 Left Passive Testing Position Supine Straight Leg Raise 70 Internal Rotation 25 External Rotation 35 PT-OP-M Strength Start: 02/12/23 07:55 Freq: Status: Active Protocol: Document 02/12/23 08:01 LRN (Rec: 02/12/23 08:48 LRN [id number]) Hip Strength Hip Manual Muscle Testing Right External Rotation 5 Normal Internal Rotation 5 Normal Left External Rotation 4+ Good+ Internal Rotation 5 Normal PT-OP-Q Treatments Start: 12/01/22 11:38 Freq: Status: Active Protocol: Document 03/08/23 08:52 LRN (Rec: 03/08/23 09:38 LRN [id number]) Therapeutic Exercises Supine Exercises Lateral Hip stretch Supine Exercise Name Lateral Hip Stretch Side bilateral Reps/Minutes R focus due most restricted mobility Comments Extra time taken for V cues, phys cues Fig 4 stretch Supine Exercise Name Fig 4 - HEP issued Side bilateral Reps/Minutes R focus due most restricted mobility Comments Much adjusting of positioning to achieve tolerable position for stretch pelvic floor contract Supine Exercise Name PF contraction training in isolation of substitute muscles Reps/Minutes 15' Comments Extra time taken for set up for LB comfort, Much v cues, phys cues hip flexor stretch Supine Exercise Name Ilipsoas - HEP issued, verbal review Side bilateral piriformis stretch Supine Exercise Name Ankle crossed over knee - HEP issued Side bilateral Reps/Minutes R focus due to most restricted , tolerated 30 R, 60 L. Comments Extra time taken for set up for LB comfort, Much v cues, phys cues Self-Care/Home Management Treatment Education Other Education Discussed briefly Genital Hygiene and General Vulvar Care. Activities Self-Care/Home Management Activities Issued handout for Genital Hygiene and General Vulvar Care. Issued & reviewed HEP: Piriformis (ankle crossed over knee), Fig 4, Hip flexor stretch, Iliopsoas stretch(not performed). PT-OP-T Assessment and Plan Start: 12/01/22 11:38 Freq: Status: Active Protocol: Document 03/08/23 08:52 LRN (Rec: 03/08/23 09:38 LRN [id number]) Physical Therapy Assessment Goals Two Impairment Incontinence Short Term Goal (STG) Marti will calmly walk to the bathroom without leaking. 02/12/23: Pt leaking 2x/day. STG Duration 4 weeks One Impairment Pelvic floor strength Short Term Goal (STG) Marti will be independent with and pelvic floor strengthening HEP. 02/12/23: STG Duration 4 weeks progressed Jordan Man Goal (LTG) Marti will be able to contract her pelvic floor while moving from sit to stand . LTG Duration 8 weeks Assessment Summary Assessment Pt currently has UTI and is on antiobiotics; therefore not able to use EStim for PF training. The pt is guarded, needing PT/self mask wearing and PT handwashing. Pt very guarded with body, not wanting to be touched, opting for I/S and self stretching. Pt is very tight in hips with low tolerance to holding stretch, but not modifying position to reduce stretch. Pt requires much cuing throughout session for breathing through ex and relaxation with stretch. Pt probably needs manual therapy to the abdomen, but pt is hesitant to have manual treatment to abdomen, due to her pain, although I expect if manual abdominal treatment could be tolerated it would be helpful in reducing her pain. Expect slow progression of therapy and improving mobility due to the pt's presentation of guarded behaviour. Physical Therapy Plan Frequency and Duration Frequency of Treatment 1x/Week Duration of treatment (weeks) 8 Plan of Care Start Date 02/12/23 Plan of Care End Date 04/09/23 Next Visit Focus/Plan Next Note Type Treatment Note Next Visit Plan Discuss cont of therapy, progress towards goals, and POC. Assess for latex allergy Assess LB involvement, and abdominal/GI dysfunction. Review/perform: Ilipsoas stretch and cont stretches for rotator tightness. If needed, review general vulvar and genital hygiene care Review coordination breathwork /PF contractions with transfer Education in bladder irritants , & BM care, Try sEMG for PF contraction awareness, Issue & if needed urge deference technique, Ex: LE roll in/outs and supine progression of exercises. PF strengthening quick and long holds.
--- NOTE | 2023-03-15 11:20 | PT.OTN ---
Current Diagnoses Mixed incontinence (03/15/23) Physical Therapy Treatment Note PT-OP-A Visit Information Start: 12/01/22 11:38 Freq: Status: Active Protocol: Document 03/15/23 08:52 LRN (Rec: 03/15/23 09:43 LRN [id number]) Out-Patient Physical Therapy Visit Information Visit Information Visit Type Treatment Note Visit Note Pt prefers masking and to visualize therapist washing. Visit Start Time 08:52 Visit Stop Time 09:38 Total Visit Minutes 46 Visit Number 9 Evaluation Information Evaluation Date 12/02/21 Precautions Precautions Hx of LBP, mild allergies (? latex), osteopenia, arthritis. PT-OP-B Current Condition Start: 12/01/22 11:38 Freq: Status: Active Protocol: Document 12/02/22 09:05 AMB (Rec: 12/02/22 10:06 AMB [id number]) Current Condition History of Current Condition Onset Date 3-4 weeks ago Current Complaints Urge incontinence History of Current Condition 3-4 weeks ago starting having larger leaks. Has been leaking on and off for years. Walking from bed to toilet in the morning causes a large leak. Can also happen during the day now, walking to the bathroom. Going to the bathroom every half hour in the morning but then in the afternoon could be every 2 hours. 2 vaginal deliveries no leaking until about age 61. Personal Factors Other Personal Factors That May Effect osteopenia, hypertension Therapy/Recovery PT-OP-C Subjective Start: 12/01/22 11:38 Freq: Status: Active Protocol: Document 03/15/23 08:52 LRN (Rec: 03/15/23 09:43 LRN [id number]) OP-PT Subjective Patient Comments Patient Comments States she still has a feeling of something going on with the UTI, but has taken the antibiotics and waiting to feel normal. STates her Stools are type 2-7, normally 3,4,6. Leakage is better since UTI is over, hasn't had any leakage the last 2 weeks. No latex allergies she is aware of. PT-OP-I Pelvic Floor Start: 12/01/22 11:38 Freq: Status: Active Protocol: Document 02/12/23 08:01 LRN (Rec: 02/12/23 16:37 LRN [id number]) Pelvic Floor Assessment SEMG (uV) Baseline 0.1 10 Second Contraction 4.3 Relaxation Poor/Slow Holding Poor/Slow Stability of Hold Poor/Slow SEMG Stability of Rest Good PT-OP-K Range of Motion Start: 02/12/23 07:55 Freq: Status: Active Protocol: Document 02/12/23 08:01 LRN (Rec: 02/12/23 08:48 LRN [id number]) Hip Goniometric Range of Motion Hip Right Passive Testing Position Supine Straight Leg Raise 70 Internal Rotation 25 External Rotation 40 Left Passive Testing Position Supine Straight Leg Raise 70 Internal Rotation 25 External Rotation 35 PT-OP-M Strength Start: 02/12/23 07:55 Freq: Status: Active Protocol: Document 02/12/23 08:01 LRN (Rec: 02/12/23 08:48 LRN [id number]) Hip Strength Hip Manual Muscle Testing Right External Rotation 5 Normal Internal Rotation 5 Normal Left External Rotation 4+ Good+ Internal Rotation 5 Normal PT-OP-Q Treatments Start: 12/01/22 11:38 Freq: Status: Active Protocol: Document 03/15/23 08:52 LRN (Rec: 03/15/23 09:43 LRN [id number]) Therapeutic Exercises Supine Exercises Lateral Hip stretch Supine Exercise Name Lateral Hip Stretch - added to HEP Side bilateral Reps/Minutes R focus due most restricted mobility Comments Extra time taken for V cues, phys cues pelvic floor contract Supine Exercise Name PF contraction training in isolation of substitute muscles Reps/Minutes 10' Comments Extra time taken for set up for LB comfort, Much v cues for breath & isolat hip flexor stretch Supine Exercise Name Ilipsoas - HEP issued Side bilateral Reps/Minutes 5' Comments Extra time for training for max reji position. phys c's for leg stretching piriformis stretch Supine Exercise Name Ankle crossed over knee - reviewed Side bilateral Reps/Minutes R focus due to most restricted , tolerated 30 R, 60 L. Comments Extra time taken for set up for LB comfort, Much v cues, phys cues Sitting Exercises PF/Exhale/Sit<>stand Reps/Minutes 10' Comments Cuing for coordination of breath/PF with transfer. Self-Care/Home Management Treatment Education Other Education Discussed bowels and bowel care. HEP and voiding frequence with travel, amt of caffeinated drinks in AM compared to PM and more voiding in AM vs PM. Discussed at length pt goals and plan of care with pt wanting to complete therapy next week due to her spouse having surgery. Review coordination breathwork /PF contractions with transfer . PT-OP-T Assessment and Plan Start: 12/01/22 11:38 Freq: Status: Active Protocol: Document 03/15/23 08:52 LRN (Rec: 03/15/23 09:43 LRN [id number]) Physical Therapy Assessment Goals Two Impairment Incontinence Short Term Goal (STG) Marti will calmly walk to the bathroom without leaking. 02/12/23: Pt leaking 2x/day. 03/15/23: Hasn't leaked in 1 weeks since taking anti- biotics for UTI, 90% of the time. STG Duration 4 weeks progressed since use of UTI's 03/15/23 One Impairment Pelvic floor strength Short Term Goal (STG) Marti will be independent with and pelvic floor strengthening HEP. 02/12/23: STG Duration 4 weeks progressed Retirement Goal (LTG) Marti will be able to contract her pelvic floor while moving from sit to stand . LTG Duration 8 weeks Assessment Summary Assessment Pt denies knowledge of any latex allergies. Pt urinary incontinence has improved with treatment for her UTI. She has abdominal discomfort with PF contractions probably due to continued poor PF contractions and use of accessory muscles to contract. Further assessment needed. She appears to have a good understanding her hip stretches and appears willing to be compliant to stretches and PF ex's. Pt receptive to education in bladder irritants & urge deference technique. Pt wanting DC due to her spouse having surgery; therefore defer sEMG for PF contraction awareness. Physical Therapy Plan Frequency and Duration Frequency of Treatment 1x/Week Duration of treatment (weeks) 8 Plan of Care Start Date 02/12/23 Plan of Care End Date 04/09/23 Next Visit Focus/Plan Next Note Type Treatment Note Next Visit Plan Next: DC to self care HEP. Assess need for educ of general vulvar and genital hygiene care and educ on BM care. Add: Ex: LE roll in/outs and supine progression of exercises. Ilipsoas stretch, cont stretches for rotator tightness & PF strengthening quick and long holds.
--- NOTE | 2023-03-22 10:08 | PT.OTN ---
Current Diagnoses Mixed incontinence (03/22/23) Physical Therapy Treatment Note PT-OP-A Visit Information Start: 12/01/22 11:38 Freq: Status: Active Protocol: Document 03/22/23 08:51 LRN (Rec: 03/22/23 10:08 LRN [id number]) Out-Patient Physical Therapy Visit Information Visit Information Visit Type Treatment Note Visit Note Pt prefers masking and to visualize therapist washing. Visit Start Time 08:51 Visit Stop Time 09:35 Total Visit Minutes 44 Visit Number 10 Evaluation Information Evaluation Date 12/02/21 Precautions Precautions Hx of LBP, mild allergies (? latex), osteopenia, arthritis. PT-OP-B Current Condition Start: 12/01/22 11:38 Freq: Status: Active Protocol: Document 12/02/22 09:05 AMB (Rec: 12/02/22 10:06 AMB [id number]) Current Condition History of Current Condition Onset Date 3-4 weeks ago Current Complaints Urge incontinence History of Current Condition 3-4 weeks ago starting having larger leaks. Has been leaking on and off for years. Walking from bed to toilet in the morning causes a large leak. Can also happen during the day now, walking to the bathroom. Going to the bathroom every half hour in the morning but then in the afternoon could be every 2 hours. 2 vaginal deliveries no leaking until about age 61. Personal Factors Other Personal Factors That May Effect osteopenia, hypertension Therapy/Recovery PT-OP-C Subjective Start: 12/01/22 11:38 Freq: Status: Active Protocol: Document 03/22/23 08:51 LRN (Rec: 03/22/23 10:08 LRN [id number]) OP-PT Subjective Patient Comments Patient Comments States she still has symtoms of UTI; therefore choosing not to have final internal assessment of PF strength. Javing to DC due to spouse having surgery. No reports of change. Better, 1 day of leakage 3x and 1 day leakage 1x, otherwise no leakage. Doing ex's s she is sore and achy in lower abdomen during the exercise that goes away after 45 minutes. PT-OP-I Pelvic Floor Start: 12/01/22 11:38 Freq: Status: Active Protocol: Document 02/12/23 08:01 LRN (Rec: 02/12/23 16:37 LRN [id number]) Pelvic Floor Assessment SEMG (uV) Baseline 0.1 10 Second Contraction 4.3 Relaxation Poor/Slow Holding Poor/Slow Stability of Hold Poor/Slow SEMG Stability of Rest Good PT-OP-K Range of Motion Start: 02/12/23 07:55 Freq: Status: Active Protocol: Document 02/12/23 08:01 LRN (Rec: 02/12/23 08:48 LRN [id number]) Hip Goniometric Range of Motion Hip Right Passive Testing Position Supine Straight Leg Raise 70 Internal Rotation 25 External Rotation 40 Left Passive Testing Position Supine Straight Leg Raise 70 Internal Rotation 25 External Rotation 35 PT-OP-M Strength Start: 02/12/23 07:55 Freq: Status: Active Protocol: Document 02/12/23 08:01 LRN (Rec: 02/12/23 08:48 LRN [id number]) Hip Strength Hip Manual Muscle Testing Right External Rotation 5 Normal Internal Rotation 5 Normal Left External Rotation 4+ Good+ Internal Rotation 5 Normal PT-OP-Q Treatments Start: 12/01/22 11:38 Freq: Status: Active Protocol: Document 03/22/23 08:51 LRN (Rec: 03/22/23 10:08 LRN [id number]) Therapeutic Exercises Supine Exercises Lateral Hip stretch Supine Exercise Name Lateral Hip Stretch Side bilateral Reps/Minutes R focus due most restricted mobility Comments Extra time taken for V cues, phys cues Fig 4 stretch Supine Exercise Name Fig 4 Side bilateral Reps/Minutes 1x each, extra time for R focus due most restricted mobility Comments Much adjusting position to achieve proper stretch pelvic floor contract Supine Exercise Name PF contraction training in isolation of substitute muscles Reps/Minutes 3' Comments Cuing for slowing of counting for contraction of long holds. hip flexor stretch Supine Exercise Name Ilipsoas Side bilateral Reps/Minutes 4' Comments Extra time for training for max reji position. phys c's for leg stretching adductor stretch Supine Exercise Name Hip AD stretch Side bilateral Reps/Minutes 30x2 Comments butterfly piriformis stretch Supine Exercise Name Ankle crossed over knee - reviewed Side bilateral Reps/Minutes Extra time for R focus due to most restricted Comments Extra time taken for set up for LB comfort, Much v cues, phys cues Sitting Exercises PF/Exhale/Sit<>stand Sitting Exercise Name PF/Exhale/Sit<>Stand training Reps/Minutes 8' Comments Cuing for coordination of breath/PF with transfer. Self-Care/Home Management Treatment Education Patient Education Home Exercise Program Other Education Educated pt in PF anatomy and possible involvement of low back neuro-involvement of S2- S4 affected PF strength and contractions. Used model and bood anatomy. Discussed DC from therapy and how she is to ex to avoid abdominal pain and to stretch after ex if having abdominal pain. Cautioned against overuse of substitute muscles for PF contractions. Educated pt in general vulvar and genital hygiene care. Activities Self-Care/Home Management Activities Reviewed HEP. Handout issued for general vulvar and genital hygiene care. PT-OP-T Assessment and Plan Start: 12/01/22 11:38 Freq: Status: Active Protocol: Document 03/22/23 08:51 LRN (Rec: 03/22/23 10:08 LRN [id number]) Physical Therapy Assessment Goals Two Impairment Incontinence Short Term Goal (STG) Marti will calmly walk to the bathroom without leaking. 02/12/23: Pt leaking 2x/day. 03/15/23: Hasn't leaked in 1 weeks since taking anti- biotics for UTI, 90% of the time. 03/22: Leaked 3x one day and 1x another day. STG Duration 4 weeks (03/22/23: Improved, NOT MET GOAL) One Impairment Pelvic floor strength Short Term Goal (STG) Marti will be independent with and pelvic floor strengthening HEP. 02/12/23: STG Duration 4 weeks (03/21/23: MET GOAL) Palm Gatherer Goal (LTG) Marti will be able to contract her pelvic floor while moving from sit to stand . 03/22/23: Pt feels she can contract her PF while moving sit<>stand, but is not consistent with bryant with transfer. LTG Duration 8 weeks (03/22/23: MET GOAL, not consistent) Assessment Summary Assessment I was not able to perform a final assessment of her PF strength due to pt still having feeling of symptoms of UTI; therefore unknown if pt is able to perform a PF contraction with her PF muscles. She tends to overuse substitute muscles to perform a PF contraction. She does feel she can perform a PF contraction when placing her hand on her perinuem and feels it contract and relax. The pt may have tightness of PF and/or S2-S4 involvement causing poor PF strength, as pt has a history of low back pain at sacral level and very tight posterior hip muscles. Did not progress to LE roll in /outs and supine progression of exercises due to early DC. The pt was not able to meet all her goals; therefore if she has time in the future to commit to PT, further PF therapy would be appropriate. Physical Therapy Plan Frequency and Duration Frequency of Treatment 1x/Week Duration of treatment (weeks) 8 Plan of Care Start Date 02/12/23 Plan of Care End Date 04/09/23 Discharge Physical Therapy Discharge Comments Pt choosing to DC from PT due to spouse having surgery. Pt would benefit from further PF rehab when she has time to commit to therapy.
== END 2023-03-22 15:03 | disposition home or self-care (01) ==
LOC: PHYS 08:45
PROVIDERS: Absent Provider Nurse Practitioner; Family Provider Nurse Practitioner; PCP Nurse Practitioner; Referring Provider Nurse Practitioner; Visit Provider Nurse Practitioner
DX: N39.46 Mixed incontinence (principal)
CPT/HCPCS: 97110; 97112; 97140; 97161; 97535

== ENCOUNTER → 2023-08-25 08:34 | Outpatient (CLI) | payer MEDICARE, SELFPAY ==
--- NOTE | 2023-08-25 08:37 | DI.RAD.S_ITS ---
PROCEDURE: FL BARIUM SWALLOW W SPEECH INDICATIONS: Dysphagia, unspecified COMPARISON: TECHNIQUE: Examination was conducted in conjunction with speech pathology per standard protocol. In the lateral projection, filming was performed of the patient swallowing. AP projection filming may also be performed with patient swallowing. COMPARISON: [facility], , BARIUM SWALLOW, 11/27/2009, 9:42. FINDINGS: Function: The oral preparatory phase appears normal, with proper containment. The subsequent oral propulsive phase, pharyngeal phase, and esophageal phase of swallowing also appear normal with all proffered substances. No laryngotracheal aspiration. No pathologic vallecular pooling. 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 No cervical esophageal webs. No Zenker's diverticulum. No strictures. Moderate hiatal hernia. IMPRESSION: No aspiration. 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 Moderate hiatal hernia. Dictated by: Delmer Kaur M.D. on 08/25/2023 at 13:36 Approved by: Delmer Kaur M.D. on 08/25/2023 at 13:37
--- NOTE | 2023-08-25 12:21 | ST.SWALLOW ---
Visit Care Team Role Provider Type ANGEL Mazariegos Attending Provider Non-Staff Family Provider Primary Care Provider Referring Provider Specialty: Nursing Address: [facility] [address], [address], [place], [address] Email: Modified Barium Swallow Study WAREHOUSE ASSISTANT Modified Barium Swallow Study Start: 08/25/23 09:53 Freq: Status: Active Protocol: Document 08/25/23 09:53 LNK (Rec: 08/25/23 10:07 LNK [id number]) Modified Barium Swallow Study Total Time Visit Start Time 09:00 Visit Stop Time 09:45 Total Visit Minutes 45 Referral Referring Physician ANGEL Dunn Reason for Referral Dysphagia Setting Setting Outpatient Care Patient Information Identification Type Name,Address Patient History Pt was seen for a Modified Barium Swallow Study at the referral of ANGEL Dunn. According to the pt, she has been experiencing difficulty with swallowing pills for approximately 2 months. Pt reported that there are times when taking morning medications/ supplements with water, she can't get the pills to go down . She described pills sitting on her tongue with a delay swallowing. She denies difficulty with swallowing food or liquids with meals. Pt has a medical history of GERD for which she takes Omneprozol about 3 days per week. Subjective Observations Pt was seated in the fluoroscopy chair with the directions and procedures described for her. She indicated she understood and agreed to proceed. Patient Positioning Position View Lat-A/P Imaging Lateral View Textures Administered Trials Presented Thin Liquid via Spoon (IDDSI 0 ),Extremely Thick Liquid via Spoon (IDDSI 4),Regular (IDDSI 7) Barium Tablet Yes The IDDSI Framework Protocol: IDDSI.1 Oral Impairment Source: The Modified Barium Swallow Impairment Profile (MBSImP??) Lip Closure No labial escape Tongue Control During Bolus Hold Cohesive bolus between tongue to palatal seal Bolus Transport/Lingual Motion Brisk tongue motion Oral Residue Complete oral clearance Initiation of Pharyngeal Swallow Bolus head at posterior laryngeal surface of epiglottis Additional Oral Impairment Observations OME and DKS were observed to be WNL. Dentition was natural and in good hygiene. Mastication was observed to be adequate with a rotary chew pattern. Bolus formation, control and AP transition was observed to be WNL Oral phase appeared to be WNL Pharyngeal Impairment Source: The Modified Barium Swallow Impairment Profile (MBSImP??) Soft Palate Elevation No bolus between soft palate & pharyngeal wall Laryngeal Elevation Part.sup.move.thyroid cart/ part.approx.arytenoids to epiglot.petiole Anterior Hyoid Excursion Partial anterior movement Epiglottic Movement Complete inversion Laryngeal Vestibular Closure Complete; no air/contrast in laryngeal vestibule Pharyngeal Stripping Wave Present - complete Pharyngoesophageal Segment Opening Complete distention & complete duration; no obstruction of flow Tongue Base Retraction No contrast between tongue base & posterior pharyngeal wall Pharyngeal Residue Trace residue within/on pharyngeal structures Location Valleculae Additional Pharyngeal Impairment Tongue base retraction, Observations hyolaryngeal elevation/ movement as well as epiglottic inversion were observed to be WNL. Seal of the laryngeal vestibule was adequate with no penetration of aspiration observed. In the lateral view of the esophagus, a prominent CP bar was observed. This did not appear to interfere with bolus flow of contrast trials, including the 11mm barium tablet. However, as the pt does c/o greatest difficulty with swallowing morning supplements, the CP bar may temporarily interfere with the passage of the larger tablets/ capsules (i.e., calcium tablets, vitamin pills, etc.). Overall, the pharyngeal phase of swallowing was WFL. It is suggested that the pt take larger medication/ supplements with a carrier such as applesauce, yogurt, etc. A/P View Textures Administered Trials Presented Thin Liquid via Cup (IDDSI 0) The IDDSI Framework Protocol: IDDSI.1 A/P View Observations Pharyngeal Contraction Complete Esophageal Clearance Upright Position Esophageal retention w/ regtrograde flow below pharyngoesoph segment Esophageal Function Slowed Clearing,Stasis Additional A-P Observations In the AP view, the pt's esophagus retained contrast, which was partially cleared with water. Esophageal retention with retroflow was observed with thin barium trial. Slowed clearance of the barium liquid and tablet was observed, during which the pt c/o of the pills remaining in her neck area. When the esophagus eventually cleared, the pt noted the sensation was gone. Clinical Impressions Findings The pt's oral, pharyngeal and esophageal phases of swallowing were observed to be WFL. Esophageal retention, retroflow and slowed clearing were observed. The pt has a diagnosis of GERD and reported she was taking Omneprozol 3x/ week. She was encouraged to discuss this frequency with her PCP. Patient Appropriate for Therapy No Recommendations Diet Medication Recommendation Whole in Carrier,One at a Time Aspiration Precautions Additional Precautions It is suggested that the pt take larger medication/ supplements with a vincent Treatment Plan Additional Recommended Referrals Pt should discuss the above results with her PCP.
== END ==
LOC: RAD 08:35
PROVIDERS: Family Provider Nurse Practitioner; PCP Nurse Practitioner; Referring Provider Nurse Practitioner; Visit Provider Nurse Practitioner
DX: R13.10 Dysphagia, unspecified (principal); K44.9 Diaphragmatic hernia without obstruction or gangrene
CPT/HCPCS: 74230; 92611

== ENCOUNTER 2025-03-13 06:38 | Day surgery (SDC) | payer MEDICARE, SELFPAY ==
--- NOTE | 2025-03-13 | PATH_ITS ---
[facility] Accession Number: [id number] No. of containers..01 Tissue . 01 Material submitted: . colon - COLON, RANDOM . 01 Clinical history: . COLITIS . 01 Diagnosis: RANDOM COLON: Melanosis coli. Negative for active, chronic, and microscopic colitis. Negative for dysplasia and malignancy. [facility] 03/20/2025 1046 Local . 01 Electronically signed: . Marcia Sherwood MD, Pathologist NPI- [id number] . 01 Gross description: . Received is one formalin-filled container labeled with the patient's name and labeled random colon, are multiple fragments of hernandez, soft tissue which range in size from less than 0.1 cm to 0.5 x 0.2 x 0.2 cm. All fragments are totally submitted in cassette A1. ([id number]) /[facility] 03/16/2025 0529 Local . 01 Pathologist provided ICD-10: R19.7, K63.89 . 01 CPT . 620776 Specimen Comment: A courtesy copy of this report has been sent to [facility] Performed at: [address] [address], [place], [place] [id number] MD Anatoly Valencia MD Phone: [phone]
[2025-03-13 07:21] VITALS: BP 125/64; PULSE 71; RESP 16; TEMP 36.7; O2SAT 97
[2025-03-13] MEDS: LACTATED RINGERS 1,000 ML 42 ML IV (07:30)
--- NOTE | 2025-03-13 07:35 | PM.HP.IH.1 ---
History of Present Illness History of Present Illness Date Patient Seen: 03/13/25 Time Patient Seen: 07:35 Chief complaint: Screening Colonoscopy Narrative: Patient presents for screening colonoscopy today. [facility] Medical History (Updated 01/03/25 @ 10:31 by Sam An MD) Wears glasses Encephalitis Mumps Chicken pox Anemia (~1961) Ocular migraine (~1991) Osteopenia (~2013) Osteoarthritis Vertigo Hearing loss (~09/2020) Cataracts, bilateral (~2009) Cervical polyp Abnormal Pap smear of cervix Surgical History (Updated 09/02/22 @ 20:25 by Patricia Williamson) Anesthesia History of dilatation and curettage (~08/2019) Family History (Updated 09/02/22 @ 20:35 by Patricia Williamson) Father History of heart disease Hypertension Mother Hypertension Stroke Sister Cancer Diabetes mellitus Hypertension Hyperlipidemia Mental health problem Stroke Grandfather Cancer Grandmother Arthritis Social History Smoking Status: Never smoker Meds Home Medications and Allergies Home Medications ?Medication ?Instructions ?Recorded ?Confirmed ?Type alprazolam 0.25 mg tablet 0.25 mg PO BEDTIME PRN sleep 09/03/22 03/13/25 History hydrochlorothiazide 25 mg tablet 25 mg PO DAILY 09/03/22 03/13/25 History losartan 50 mg tablet 50 mg PO DAILY 09/03/22 03/13/25 History metoprolol succinate 50 mg 50 mg PO DAILY 09/03/22 03/13/25 History tablet,extended release 24 hr rosuvastatin 5 mg tablet 5 mg PO DAILY 09/03/22 03/13/25 History Allergies Allergy/AdvReac Type Severity Reaction Status Date / Time No Known Drug Allergies Allergy Unverified 01/03/25 09:55 Exam Vital Signs (past 8 hours): - 03/13/25 07:21 Temperature 98.0 F Pulse Rate 71 Respiratory Rate 16 Blood Pressure 125/64 Pulse Oximetry 97 Oxygen Delivery Method Room Air Oxygen Delivery Method Room Air Const General: comfortable Orientation: alert and oriented x3 Resp Effort & Inspection: normal respiratory effort and able to speak in complete sentences Cardio Rate: regular rate GI Palpation: soft (NT) Extrem General: no pedal edema and no calf tenderness Objective Labs Labs: Laboratory Results - last 24 hr 03/13/25 07:16 POC Whole Bld Glucose 103 H Assessment & Plan Assessment and plan (1) Encounter for screening colonoscopy: Status: Acute Plan Colonoscopy, possible biopsy. The risks, benefits and options regarding the procedure were explained to the patient in detail. Risk discussion included but not limited to: bleeding, perforation, missed lesion, unable to reach cecum. The patient was encouraged to ask questions and they were answered to their satisfaction. The patient understands and is agreeable to proceed. Time-Based Coding :: [TOTAL MINUTES] spent with patient and on the chart (including review of chart, obtaining history, exam, reviewing outside data, placing orders, documenting exam and treatment plan, and counseling patient) on [DATE]. [employer] Document charge(s): Yes Charge Codes Inpatient/observation care including admit and discharge same day: [id number]
--- NOTE | 2025-03-13 08:31 | PM.OP.COLON ---
Operative Date/Time/Diagnoses Date of procedure: 03/13/25 Time of procedure: 08:32 Pre-op diagnosis: Screening colonoscopy Post-op diagnosis: other (Diverticulosis, colitis) Procedure & Clinicians Study performed: Colonoscopy with biopsy Same procedure(s) as scheduled: Yes Indications: 79yo F, screening colonoscopy Surgeon: Sam An Anesthesia Type: MAC +/- Procedure Notes SCOAP/Timeout: Performed Procedure in detail: Colonoscopy Patient placed in left lateral recumbent position. Time out was performed. Procedural sedation was administered by anesthesia. Examination began with a thorough inspection of the perianal area. There was no evidence of fissures, fistulae, external hemorrhoids or cutaneous malignancy. The colonoscope was then placed into the rectum and the lumen was insufflated with carbon dioxide. The scope was carefully advanced forward. Ultimately the cecum was intubated and confirmed by identification of the ileocecal valve, the appendiceal orifice and the confluence of the taenia. The scope was then slowly withdrawn examining the colon thoroughly in all directions. In the rectum, retroflexion of the scope was performed for inspection of the distal rectum and anal canal. ?Significant colonoscopy findings: ?1. Quality of the preparation-good, [place] 2-3, improved with irrigation/suction ?2. Sigmoid diverticulosis, scattered diverticulae in ascending colon 3. Colitis, non-specific involving rectum and entire colon, random cold biopsies taken from ascending, transverse, descending, sigmoid and rectum for pathology, no ulcerations, no pseudomembranes Scope withdrawal time: 8 Findings: colitis and divertiulosis Specimen(s): other (random biopsies for colitis) Impression: Nonspecific colitis, biopsies taken Sigmoid diverticulosis, scattered diverticulae in ascending Post-procedure Recommendations: Colonoscopy in 10 years Plan for aftercare: PACU then home Follow up: as needed Disposition: PACU
[2025-03-13 08:32] VITALS: BP 123/57; PULSE 73; RESP 16; TEMP 36.9; O2SAT 98
[2025-03-13 08:37] VITALS: BP 119/55; PULSE 71; RESP 16; O2SAT 93
[2025-03-13 08:48] VITALS: BP 110/59; PULSE 69; RESP 16; O2SAT 98
== END 2025-03-13 08:53 | disposition home or self-care (01) ==
PROVIDERS: Family Provider Nurse Practitioner; PCP Nurse Practitioner; Referring Provider Surgery; Visit Provider Surgery
PROC: 0DJD8ZZ Inspection of Lower Intestinal Tract, Via Natural or Artificial Opening Endoscopic (ICD-10-PCS; CPT 45378; principal; 2025-03-13 07:45)
DX: Z12.11 Encounter for screening for malignant neoplasm of colon (principal); K57.30 Diverticulosis of large intestine without perforation or abscess without bleeding; K52.9 Noninfective gastroenteritis and colitis, unspecified; K63.89 Other specified diseases of intestine
CPT/HCPCS: 45380; 82962; J2405; J2704